=== PATIENT | female | born 1975 | race Caucasian/White ===

== ENCOUNTER → 2018-07-09 | Outpatient (CLI) | payer OTHER | END | disposition home or self-care (01) | LOC: LAB SHORT 18:05 → LAB 18:05 | DX: R35.0 Frequency of micturition (principal) | CPT/HCPCS: 87086 ==

== ENCOUNTER 2021-06-16 09:10 | Day surgery (SDC) | payer OTHER ==
[2021-06-14 11:18] LABS: BASOPHILS ABSOLUTE AUTO 0.03 K/mm3 (0.00-0.23); BASOPHILS PERCENT AUTO 1 % (0-2); EOSINOPHILS ABSOLUTE AUTO 0.07 K/mm3 (0.00-0.68); EOSINOPHILS PERCENT AUTO 1 % (0-6); Hematocrit 37.8 % (33.0-51.0); Hemoglobin 12.5 g/dL (11.5-16.0); IMMATURE GRAN ABSOLUTE AUTO 0.01 K/mm3 (0.00-0.10); IMMATURE GRAN PERCENT AUTO 0 % (0-1); LYMPHOCYTES ABSOLUTE AUTO 2.38 K/mm3 (0.84-5.20); LYMPHOCYTES PERCENT AUTO 40 % (21-46); MONOCYTES ABSOLUTE AUTO 0.41 K/mm3 (0.16-1.47); MONOCYTES PERCENT AUTO 7 % (4-13); Mean Corpuscular HGB 28.6 pg (26.0-34.0); Mean Corpuscular HGB Conc 33.1 g/dL (31.5-36.5); Mean Corpuscular Volume 87 fL (80-100); Mean Platelet Volume 10.6 fL (9.1-12.4); NEUTROPHILS ABSOLUTE AUTO 3.11 K/mm3 (1.96-9.15); NEUTROPHILS PERCENT AUTO 52 % (41-73); Platelet Count 374 K/mm3 (150-400); RDW Coefficient Variation 12.7 % (11.7-14.2); RDW Standard Deviation 40.7 fL (35.1-46.3); Red Blood Cell Count 4.37 M/mm3 (3.80-5.20); White Blood Cell Count 6.01 K/mm3 (4.00-11.30)
[2021-06-14 12:36] LABS: Anion Gap 7 mmol/L (6-16); Blood Urea Nitrogen 10 mg/dL (8-24); Bun/Creatinine Ratio 13.9 (12.0-20.0); CO2, Blood 26 mmol/L (21-32); Calcium, Blood 9.4 mg/dL (8.5-10.1); Chloride, Blood 104 mmol/L (98-108); Creatinine, Blood 0.72 mg/dL (0.40-1.00); Glomerular Filtration Rate >60 (60-); Glucose, Blood 123 mg/dL (70-99); Potassium, Blood 4.8 mmol/L (3.5-5.5); Sodium, Blood 137 mmol/L (136-145)
[2021-06-14 12:39] LABS: Beta HCG, Quantitative, Serum <1 mIU/mL (0-3)
[~2021-06-16] VITALS: Ht 167.6 cm; Wt 72.9 kg
[~2021-06-16 09:10] MED LIST: BRINTELLIX20 MG PO
--- NOTE | 2021-06-16 09:44 | NUR ---
Ambulatory in Day Surgery History, Chart, Medications and Allergies reviewed before start of procedure. Lungs clear T/O to Auscultation. Patient confirms NPO status and agrees with scheduled surgery. Pre-Op teaching done. Pt verbalizes understanding.
--- NOTE | 2021-06-16 12:32 | NUR ---
06/16/21 Mirtha Hou PRIOR TO SURGERY START THE MELGAR TABLE WAS IN PLACE & SECURED TO PROTECT THE PATIENTS FACE,HEAD, AND INTUBATION TUBE.
--- NOTE | 2021-06-16 19:07 | NUR ---
SHIFT SUMMARY PT STATUS POST FOR TOTAL LAP HYSTER. 4 LAP SITES WITH DERMABOND CDI. PT VERY SLEEPY AFTER SURGERY AND DENIES PAIN AT THIS TIME. SBA TO THE BATHROOM TO HAVE A BM. PT PASSING GAS. VSS. WILL REPORT TO HOWARD YATES.
[2021-06-17 04:44] LABS: BASOPHILS ABSOLUTE AUTO 0.02 K/mm3 (0.00-0.23); BASOPHILS PERCENT AUTO 0 % (0-2); EOSINOPHILS ABSOLUTE AUTO 0.01 K/mm3 (0.00-0.68); EOSINOPHILS PERCENT AUTO 0 % (0-6); Hemoglobin 11.1 g/dL (11.5-16.0); IMMATURE GRAN ABSOLUTE AUTO 0.04 K/mm3 (0.00-0.10); IMMATURE GRAN PERCENT AUTO 0 % (0-1); LYMPHOCYTES ABSOLUTE AUTO 1.99 K/mm3 (0.84-5.20); LYMPHOCYTES PERCENT AUTO 17 % (21-46); MONOCYTES PERCENT AUTO 10 % (4-13); Mean Corpuscular HGB 28.4 pg (26.0-34.0); Mean Corpuscular HGB Conc 32.6 g/dL (31.5-36.5); Mean Corpuscular Volume 87 fL (80-100); Mean Platelet Volume 10.9 fL (9.1-12.4); NEUTROPHILS ABSOLUTE AUTO 8.58 K/mm3 (1.96-9.15); NEUTROPHILS PERCENT AUTO 73 % (41-73); Platelet Count 345 K/mm3 (150-400); RDW Coefficient Variation 12.9 % (11.7-14.2); RDW Standard Deviation 40.8 fL (35.1-46.3); Red Blood Cell Count 3.91 M/mm3 (3.80-5.20); White Blood Cell Count 11.84 K/mm3 (4.00-11.30)
--- NOTE | 2021-06-17 07:34 | NUR ---
SHIFT SUMMARY POD1 TOTAL LAP HYSTER, A/OX4, VSS, TOLERATING PO, PARRA REMOVED AT START OF SHIFT, PT VOIDING WELL, AMBULATING INDEPENDENTLY IN ROOM c SBA, MODERATLY PAINFUL FIRST HALF OF SHIFT BUT IMPROVED c SINGLE DOSE OF MORPHINE AND TORADOL, PT REPORTS BEING ABLE TO SLEEP BETTER ONCE PAIN BETTER CONTROLLED. SCANT DRAINAGE NOTED ON JAMES PAD AT TIME OF PARAR REMOVAL AND SCANT AMT IN TOILET WHEN VOIDING. PT REPORTS BEING READY TO GO HOME ONCE CLEARED TO DO SO. NO ACUTE EVENTS THIS SHIFT. CALL LIGHT IN REACH, REPORT GIVEN TO DAY RN.
[2021-06-17] MEDS ORDERED: DOCU100 PO (10:34)
[2021-06-17] MEDS ORDERED: CLIMARA1 EACH PO (10:35)
[2021-06-17] MEDS ORDERED: IBUP400 PO (10:35)
[2021-06-17] MEDS ORDERED: DULCOLAX400 MG/5 M PO (10:36)
[2021-06-17] MEDS ORDERED: Percocet 5-3251 EACH PO (10:37)
[2021-06-17] MEDS ORDERED: PROM25 PO (10:37)
[2021-06-17] MEDS ORDERED: SENNA LAXATIVE8.6 MG PO (10:37)
[2021-06-17] MEDS ORDERED: SIME80CH PO (10:38)
--- NOTE | 2021-06-17 11:30 | NUR ---
DISCHARGE NOTE: PATIENT WAS EDUCATED ON DISCHARGE INSTRUCTIONS. SHE VERBALIZED UNDERSTANDING OF INSTRUCTIONS. HARD PERSCRIPTION WAS PLACED IN INSTRUCTION FOLDER. IV WAS TAKEN OUT AND WNL. ABD HAS 4 LAP SITES WITH WOUND GLUE THAT ARE C/D/I. SHE IS TOLERATING PO INTAKE AND IS VOIDING. PATIENT IS ALSO PASSING FLATUS AND BURPING. SHE IS DRESSED AND HAS HER PERSONAL ITEMS GATHERED. SHE IS BEING WHEELCHAIRED OUT TO HER FRIENDS CAR TO BE TAKEN HOME.
== END 2021-06-17 11:29 | disposition home or self-care (01) ==
LOC: ORSCMMR 09:10 → ORD 11:00 → ORSCMMR 11:00 → SURS 16:01 → ORSCMMR 06-17 11:29
PROVIDERS: Obstetrics & Gynecology
PROC: 0UT94ZZ Resection of Uterus, Percutaneous Endoscopic Approach (ICD-10-PCS; principal; 2021-06-16 11:00)
PROC: 8E0W4CZ Robotic Assisted Procedure of Trunk Region, Percutaneous Endoscopic Approach (ICD-10-PCS; principal; 2021-06-16 11:00)
PROC: 0UT24ZZ Resection of Bilateral Ovaries, Percutaneous Endoscopic Approach (ICD-10-PCS; principal; 2021-06-16 11:00)
PROC: 0U5F4ZZ Destruction of Cul-de-sac, Percutaneous Endoscopic Approach (ICD-10-PCS; principal; 2021-06-16 11:00)
PROC: 0UT74ZZ Resection of Bilateral Fallopian Tubes, Percutaneous Endoscopic Approach (ICD-10-PCS; principal; 2021-06-16 11:00)
DX: N92.0 Excessive and frequent menstruation with regular cycle (principal); N94.6 Dysmenorrhea, unspecified; N80.3 Endometriosis of pelvic peritoneum; N84.0 Polyp of corpus uteri; K66.0 Peritoneal adhesions (postprocedural) (postinfection); F32.A Depression, unspecified; Z79.899 Other long term (current) drug therapy
CPT/HCPCS: 58571; 58662; S2900; 36415; 80048; 84702; 85025; 86850; 86900; 86901; 88305; 88307; A9270; J0690; J1100; J1885; J2250; J2270; J2370; J2405; J2704; J2765; J3010; J7120

== ENCOUNTER → 2021-12-28 | Outpatient (CLI) | payer OTHER ==
[~2021-12-28] MED LIST changes: +CLIMARA1 EACH PO; +DOCU100 PO; +DULCOLAX400 MG/5 M PO; +IBUP400 PO; +METO10 PO; +Magnesium Citr296 ML PO; +PROM25 PO; +Percocet 5-3251 EACH PO; +SENNA LAXATIVE8.6 MG PO; +SIME80CH PO
== END | disposition home or self-care (01) ==
LOC: LAB SHORT 17:45 → LAB 17:45
DX: R82.90 Unspecified abnormal findings in urine (principal)
CPT/HCPCS: 87086

== ENCOUNTER 2022-01-16 06:24 | Emergency (ER) | payer OTHER ==
[~2022-01-16] VITALS: Ht 167.6 cm; Wt 68.0 kg
[2022-01-16] MEDS ORDERED: FAMO20 PO (06:47)
[2022-01-16] MEDS ORDERED: OMEP20ER PO ×2 (06:47→09:32)
[2022-01-16 07:18] LABS: Source, Urine Clean Catch
[2022-01-16 07:24] LABS: Albumin, Blood 3.6 g/dL (3.4-5.0); Albumin/Globulin Ratio 1.1 (0.8-1.8); Bilirubin, Direct 0.2 mg/dL (0.0-0.3); Bilirubin, Indirect 0.6 mg/dL (0.1-0.7); Bilirubin, Total 0.8 mg/dL (0.1-1.0); Bun/Creatinine Ratio 26.2 (12.0-20.0); Creatinine, Blood 0.57 mg/dL (0.40-1.00); Globulin, Blood 3.2 g/dL (2.2-4.0); Potassium, Blood 3.9 mmol/L (3.5-5.5); Total Protein, Blood 6.8 g/dL (6.4-8.2)
[2022-01-16 07:49] LABS: Bilirubin, Urine Neg (Neg); Blood, Urine Neg (Neg); Glucose Qualitative, Urine Neg (Neg); Ketones, Urine 4+ (Neg); Leukocyte Esterase, Urine 1+ (Neg); Nitrite, Urine Neg (Neg); Protein, Urine 2+ (Neg); Urobilinogen, Urine NORM (Normal)
[2022-01-16 07:56] LABS: Appearance, Urine Hazy (Clear); Bacteria Rare /hpf; Color, Urine Yellow (P-Yellow); Red Blood Cells, Urine Not Seen /hpf (0-2); Squamous Epithelial Cells Rare /hpf (Few); White Blood Cells, Urine 0-2 /hpf (0-5)
[2022-01-16 09:15] LABS: Influenza A, PCR NEGATIVE (NEGATIVE); Influenza B, PCR NEGATIVE (NEGATIVE); Resp Syncytial Virus, PCR NEGATIVE (NEGATIVE); SARS-Cov-2 (COVID-19) PCR, MMC NEGATIVE (NEGATIVE)
[2022-01-16 09:15] LABS: BASOPHILS ABSOLUTE AUTO 0.01 K/mm3 (0.00-0.23); BASOPHILS PERCENT AUTO 0 % (0-2); EOSINOPHILS ABSOLUTE AUTO 0.02 K/mm3 (0.00-0.68); EOSINOPHILS PERCENT AUTO 0 % (0-6); Hematocrit 33.3 % (33.0-51.0); Hemoglobin 10.8 g/dL (11.5-16.0); IMMATURE GRAN ABSOLUTE AUTO 0.01 K/mm3 (0.00-0.10); IMMATURE GRAN PERCENT AUTO 0 % (0-1); LYMPHOCYTES ABSOLUTE AUTO 1.36 K/mm3 (0.84-5.20); LYMPHOCYTES PERCENT AUTO 26 % (21-46); MONOCYTES ABSOLUTE AUTO 0.66 K/mm3 (0.16-1.47); MONOCYTES PERCENT AUTO 13 % (4-13); Mean Corpuscular HGB 27.3 pg (26.0-34.0); Mean Corpuscular HGB Conc 32.4 g/dL (31.5-36.5); Mean Corpuscular Volume 84 fL (80-100); Mean Platelet Volume 11.1 fL (9.1-12.4); NEUTROPHILS ABSOLUTE AUTO 3.24 K/mm3 (1.96-9.15); NEUTROPHILS PERCENT AUTO 61 % (41-73); Platelet Count 300 K/mm3 (150-400); RDW Coefficient Variation 11.6 % (11.7-14.2); RDW Standard Deviation 35.5 fL (35.1-46.3); Red Blood Cell Count 3.96 M/mm3 (3.80-5.20)
[2022-01-16] MEDS ORDERED: SULTRIDS PO (09:32)
[2022-01-16] MEDS ORDERED: ONDA4ODT MM (09:32)
[2022-01-16] MEDS ORDERED: CEFD300 PO (09:32)
[2022-01-16] MEDS ORDERED: ALMACONE SUSPE355 ML PO (09:32)
[2022-01-17] MEDS ORDERED: BRINTELLIX20 MG PO (17:05)
[2022-01-17] MEDS ORDERED: PROM25 PR (19:44)
== END 2022-01-16 09:41 | disposition home or self-care (01) ==
LOC: ER 06:24
PROVIDERS: Student in an Organized Health Care Education/Training Program
DX: K29.70 Gastritis, unspecified, without bleeding (principal); K21.9 Gastro-esophageal reflux disease without esophagitis; L03.213 Periorbital cellulitis; H00.031 Abscess of right upper eyelid; Z91.040 Latex allergy status; E03.9 Hypothyroidism, unspecified; Z79.899 Other long term (current) drug therapy; Z20.822 Contact with and (suspected) exposure to COVID-19
CPT/HCPCS: 0241U; 36415; 80048; 80076; 81001; 81025; 83690; 83735; 85025; A9270; J2405; J7030

== ENCOUNTER 2022-01-17 12:34 | Emergency (ER) | payer OTHER ==
[~2022-01-17] VITALS: Ht 167.6 cm; Wt 63.5 kg
[~2022-01-17 12:34] MED LIST changes: +ALMACONE SUSPE355 ML PO; +CEFD300 PO; +FAMO20 PO; +OMEP20ER PO; +ONDA4ODT MM; +SULTRIDS PO
[2022-01-17] MEDS ORDERED: BRINTELLIX20 MG PO (17:05)
[2022-01-17] MEDS ORDERED: PROM25 PR (19:44)
== END 2022-01-17 20:15 | disposition home or self-care (01) ==
LOC: ER 12:34
DX: K29.90 Gastroduodenitis, unspecified, without bleeding (principal)
CPT/HCPCS: 76705; A9270; C9113; J0780; J7030

== ENCOUNTER 2022-05-05 06:49 | Day surgery (SDC) | payer OTHER ==
[~2022-05-05] VITALS: Ht 167.6 cm; Wt 61.8 kg
[~2022-05-05 06:49] MED LIST changes: +BISMUTH SUBSALICYLAT PO; +CIPR500 PO; +K-Phos Origina500 MG PO; +LACT PO; +LOPE2C PO; +PANT40 PO; +PHENERGAN25 MG PR; +PROM25 PR; +Pyridium100 MG PO
[2022-05-05] MEDS ORDERED: Methazolamide25 MG PO (07:17)
[2022-05-05] MEDS ORDERED: METHI10 PO (07:19)
--- NOTE | 2022-05-05 07:34 | NUR ---
History, Chart, Medications and Allergies reviewed before start of procedure. Lungs clear T/O to Auscultation. Patient confirms NPO status and agrees with scheduled surgery. Pre-Op teaching done. Pt verbalizes understanding. Patient States Post-Procedure ride home has been arranged. Patient states colon prep results clear.
--- NOTE | 2022-05-05 08:21 | NUR ---
05/05/22 0821 Rayne Diego HISTORY, CHART, MEDICATIONS AND ALLERGIES REVIEWED BEFORE START OF PROCEDURE. PATIENT CONFIRMS NPO STATUS AND AGREES WITH SCHEDULED PROCEDURE. 3-LEAD EKG REVIEWED WITH PHYSICIAN PRIOR TO START OF PROCEDURE. MONITOR INTACT WITH CONTINUOUS PULSE OXIMETRY,CAPNOGRAPHY, 3-LEAD EKG, INTERMITTENT BP. SUPPLEMENTAL O2 TO BE TITRATED THROUGHOUT PROCEDURE TO MAINTAIN O2 SATURATION ABOVE 90%. PATIENT DETERMINED TO BE ASA APPROPRIATE FOR PROPOFOL SEDATION PRIOR TO START OF PROCEDURE BY DR. HOLLINGSWORTH.
--- NOTE | 2022-05-05 09:24 | NUR ---
PT ADVISED TO TAKE OVER THE COUNTER TYLENOL, AND IF PAIN PERSISTS TO CONTACT PCP
--- NOTE | 2022-05-05 09:42 | NUR ---
Discharge instructions reviewed with patient. Patient verbalizes understanding. Copy given to patient to take home. Discharged via wheelchair to private car for ride home.
== END 2022-05-05 09:42 | disposition home or self-care (01) ==
LOC: ORSCMMR 06:49 → ORD 08:00 → ORSCMMR 08:15 → ORSCSDS 15:15
PROVIDERS: Internal Medicine Gastroenterology
PROC: 0DJD8ZZ Inspection of Lower Intestinal Tract, Via Natural or Artificial Opening Endoscopic (ICD-10-PCS; principal; 2022-05-05 08:15)
DX: R10.9 Unspecified abdominal pain (principal); R11.2 Nausea with vomiting, unspecified; K59.00 Constipation, unspecified; Q43.8 Other specified congenital malformations of intestine; E78.5 Hyperlipidemia, unspecified; R10.84 Generalized abdominal pain; Z79.899 Other long term (current) drug therapy
CPT/HCPCS: J2250; J2405; J2704; J7120

== ENCOUNTER → 2022-09-23 | Outpatient (CLI) | payer OTHER ==
[~2022-09-23] MED LIST changes: +METHI10 PO; +Methazolamide25 MG PO
[2022-09-23 15:19] LABS: BASOPHILS ABSOLUTE AUTO 0.02 K/mm3 (0.00-0.23); BASOPHILS PERCENT AUTO 0 % (0-2); EOSINOPHILS ABSOLUTE AUTO 0.03 K/mm3 (0.00-0.68); EOSINOPHILS PERCENT AUTO 0 % (0-6); Hematocrit 42.1 % (33.0-51.0); Hemoglobin 14.1 g/dL (11.5-16.0); IMMATURE GRAN ABSOLUTE AUTO 0.02 K/mm3 (0.00-0.10); IMMATURE GRAN PERCENT AUTO 0 % (0-1); LYMPHOCYTES ABSOLUTE AUTO 2.58 K/mm3 (0.84-5.20); LYMPHOCYTES PERCENT AUTO 28 % (21-46); MONOCYTES ABSOLUTE AUTO 0.38 K/mm3 (0.16-1.47); MONOCYTES PERCENT AUTO 4 % (4-13); Mean Corpuscular HGB 28.7 pg (26.0-34.0); Mean Corpuscular HGB Conc 33.5 g/dL (31.5-36.5); Mean Corpuscular Volume 86 fL (80-100); Mean Platelet Volume 9.9 fL (9.1-12.4); NEUTROPHILS ABSOLUTE AUTO 6.31 K/mm3 (1.96-9.15); NEUTROPHILS PERCENT AUTO 68 % (41-73); Platelet Count 382 K/mm3 (150-400); RDW Coefficient Variation 12.4 % (11.7-14.2); RDW Standard Deviation 38.5 fL (35.1-46.3); Red Blood Cell Count 4.91 M/mm3 (3.80-5.20); White Blood Cell Count 9.34 K/mm3 (4.00-11.30)
[2022-09-23 15:37] LABS: Bun/Creatinine Ratio 19.5 (12.0-20.0); Calcium, Blood 9.6 mg/dL (8.5-10.1); Creatinine, Blood 0.77 mg/dL (0.40-1.00); Potassium, Blood 4.1 mmol/L (3.5-5.5); Thyroid Stimulating Hormone 0.56 uIU/mL (0.360-4.800)
== END | disposition home or self-care (01) ==
LOC: LAB SHORT 15:14 → LAB 15:14
PROVIDERS: Physician Assistant Surgical
DX: R11.0 Nausea (principal)
CPT/HCPCS: 80048; 84443; 85025

== ENCOUNTER → 2022-09-25 | Outpatient (CLI) | payer OTHER | END | disposition home or self-care (01) | LOC: LAB SHORT 15:51 → LAB 15:51 | DX: R30.0 Dysuria (principal) | CPT/HCPCS: 87086 ==

== ENCOUNTER → 2023-08-07 | Outpatient (CLI) | payer OTHER | LOC: LAB SHORT 07:54 → LAB 07:54 | DX: L57.0 Actinic keratosis (principal) | CPT/HCPCS: 88305 ==

== ENCOUNTER → 2024-06-25 | Outpatient (CLI) | payer OTHER ==
[2024-06-25 17:31] LABS: Source, Urine Clean Catch
[2024-06-25 18:37] LABS: Appearance, Urine Clear (Clear); Bilirubin, Urine Neg (Neg); Blood, Urine Neg (Neg); Color, Urine Yellow (P-Yellow); Glucose Qualitative, Urine Neg (Neg); Ketones, Urine 2+ (Neg); Leukocyte Esterase, Urine Neg (Neg); Nitrite, Urine Neg (Neg); Protein, Urine Neg (Neg); Urobilinogen, Urine NORM (Normal)
== END ==
LOC: LAB SHORT 17:28 → LAB 17:28
PROVIDERS: Family Medicine
DX: R30.0 Dysuria (principal); R39.15 Urgency of urination
CPT/HCPCS: 81003